=== PATIENT | female | born 1990 | race Caucasian/White ===

== ENCOUNTER 2016-03-21 08:39 | Emergency (ER) | payer BC ==
[~2016-03-21] VITALS: Ht 160 cm; Wt 98.8 kg
[~2016-03-21 08:39] MED LIST: BIRTHCONTROL PILL; CEFTIN250 MG PO; CIPROFLOXACIN500 M1 PO; DOCUSATE SODIU100 MG PO; ENDOCET 5-3251 EACH PO; FLEXERIL10 MG PO; FLEXERIL5 MG PO; FLINTSTONES1 TABLET PO; Folic Acid PO; IBUPROFEN600 MG PO; MACROBID100 MG PO; MEDROL DOSEPAK4 MG PO; MOBIC7.5 MG PO; Motrin PO; NAPROSYN500 MG PO; NEXPLANON68 MG SC; NOHOMEMEDS; NORCO 5/3251 TABLET PO; OXYCODONE HCL5 MG PO; PERCOCET 5/31 TABLET PO; PHENAZOPYRIDIN100 MG PO; PREDNISONE50 MG PO; Percocet 5/325,Endoc PO; TAMSULOSIN HCL0.4 MG PO; TOPIRAMATE200 MG PO; ULTRAM50 MG PO
[2016-03-21 09:41] LABS: HEMATOCRIT 38.6 % (36.0-46.0); MCH 29.7 PG (29.0-34.0); PLATELET COUNT 250 K/uL (156-360); RBC DIS.WIDTH-CV 12.3 % (11.8-14.6); RBC DIS.WIDTH-SD 36.9 % (39-53); RED BLOOD COUNT 4.54 M/uL (3.80-5.20); WHITE BLOOD COUNT 9.7 K/uL (4.1-10.2)
[2016-03-21 09:41] LABS: ADD MIUA? YES; BILIRUBIN NEGATIVE; BLOOD NEGATIVE; COLOR YELLOW ((YELLOW)); GLUCOSE (STRIP) NEGATIVE; KETONES TRACE; LEUKOCYTES TRACE; NITRITE NEGATIVE; PROTEIN (STRIP) NEGATIVE; SPECIFIC GRAVITY 1.025 (1.000-1.030); UROBILINOGEN 0.2 MG/DL (0.2-1.0)
[2016-03-21 09:48] LABS: CHLORIDE 106 mEq/L (99-109); POTASSIUM 3.6 mEq/L (3.7-5.4); SODIUM 137 mEq/L (136-147)
[2016-03-21 09:49] LABS: GLUCOSE 99 mg/dL (70-99)
[2016-03-21 09:51] LABS: ANION GAP 15 MEQ/L (2-14)
[2016-03-21 09:53] LABS: GFR ESTIMATE (CALCULATED) > 59 mL/min/
[2016-03-21 09:54] LABS: UREA NITROGEN (BUN) 10 mg/dL (9-23)
[2016-03-21 10:40] LABS: BACTERIA 1+; CASTS NONE SEEN /LPF; EPITHELIAL CELLS 1+; MUCUS NONE SEEN; RED BLOOD CELLS NONE SEEN /HPF (0-5); UCUL ADDED? NO; WHITE BLOOD CELLS 0-5 /HPF (0-5)
[2016-03-21 10:41] LABS: CRYSTALS NONE SEEN
[2016-03-21] MEDS ORDERED: PERCOCET 5/31 TABLET PO (13:36)
[2016-03-21 14:54] LABS: INTERNAL CONTROL VALID? YES
[2016-03-21 15:45] VITALS: BP 124/69
== END 2016-03-21 15:46 | disposition home or self-care (01) ==
LOC: EME 08:39
PROVIDERS: Emergency Medicine
DX: R10.9 Unspecified abdominal pain (principal); Z87.442 Personal history of urinary calculi; G43.909 Migraine, unspecified, not intractable, without status migrainosus
CPT/HCPCS: 71010; 74176; 80048; 81003; 84703; 85027; 99281; 99285; J1170; J1885; J2405; J7030

== ENCOUNTER 2017-02-17 15:06 | Emergency (ER) | payer BC ==
[~2017-02-17] VITALS: Ht 160 cm; Wt 103.6 kg
[2017-02-17 15:56] LABS: CARBON DIOXIDE (BICARBONATE) 26.1 MEQ/L (20-31)
[2017-02-17 15:59] LABS: HEMATOCRIT 45.7 % (36.0-46.0); MCH 29.9 PG (29.0-34.0); MCHC 34.4 G/DL (30.0-36.0); MEAN PLAT.VOLUME 10.8 uM^3 (9.5-12.4); PLATELET COUNT 58 K/uL (156-360); RBC DIS.WIDTH-CV 11.6 % (11.8-14.6); RED BLOOD COUNT 5.25 M/uL (3.80-5.20); WHITE BLOOD COUNT 14.3 K/uL (4.1-10.2)
[2017-02-17 16:15] LABS: TROP-I INTERPRETATION NEGATIVE; TROPONIN-I < 0.01 ng/mL (0.0-0.30)
[2017-02-17 16:21] LABS: CHLORIDE 104 mEq/L (99-109); POTASSIUM 3.8 mEq/L (3.7-5.4); SODIUM 136 mEq/L (136-147)
[2017-02-17 16:23] LABS: GLUCOSE 107 mg/dL (70-99)
[2017-02-17 16:24] LABS: ANION GAP 12 MEQ/L (2-14)
[2017-02-17 16:27] LABS: GFR ESTIMATE (CALCULATED) > 59 mL/min/
[2017-02-17 16:28] LABS: UREA NITROGEN (BUN) 15 mg/dL (9-23)
[2017-02-17] MEDS ORDERED: ZOFRAN4 MG PO (18:08)
[2017-02-17 19:25] VITALS: BP 109/76
== END 2017-02-17 19:28 | disposition home or self-care (01) ==
LOC: EME 15:06
PROVIDERS: Emergency Medicine
DX: E86.0 Dehydration (principal); R55 Syncope and collapse
CPT/HCPCS: 71020; 80048; 82803; 83605; 83880; 84484; 85027; 87040; 87502; 93005; 99281; 99284; J1885; J2405; J7030